=== PATIENT | female | born 1985 | race Caucasian/White ===

== ENCOUNTER 2017-10-17 15:10 | Emergency (ER) | payer MEDICAID ==
[2017-10-17 15:26] VITALS: RESP 18
[2017-10-17] MEDS ORDERED: METOCLOPRAMIDE 5 MG/ML 2 ML VIAL IVP STA (15:39)
[2017-10-17] MEDS ORDERED: KETOROLAC 30 MG/ML 1 ML VIAL IVP STA (15:39)
[2017-10-17] MEDS ORDERED: LIDOCAINE 2% INJ 20 MG/ML (20 ML MDV) SQ STA (15:40)
--- NOTE | 2017-10-17 16:20 | ED ---
General Adult HPI - General Chief complaint: Headache Stated complaint: Headache Time Seen by Provider: 10/17/17 15:14 Source: patient Mode of arrival: ambulatory Limitations: no limitations - History of Present Illness Initial comments: Ania is a healthy 32 yo female who presents to the ED for evaluation of persistent headache for 6 weeks duration. Patient states that she is currently in [employer] and initially attributed her headache to stress of reading and studying while having twin 4yo boys at home. Patient states her headache began 6 weeks ago, she has attempted treatment with [id number] medications including Tylenol, Motrin, Excedrin. In addition she has tried heating pads and relaxation methods. She states that on the of this month she was experiencing frontal sinus, maxillary sinus and dental pain in addition to nasal congestion with a headache which prompted her to seek care at a walk-in clinic. Patient was diagnosed with a sinus infection and prescribed azithromycin. She reports that she had 1-2 days of relief of the headache after taking the azithromycin, however her headache has recurred. Patient subsequently followed up with walk-in clinic again and was given a cephalosporin. 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 He recommended to follow-up in outpatient setting. Patient reports that last night she took half a dose of Rizatriptan with improvement in her headache, however this morning she woke and she felt as though she had a rebound headache which was worse than her initial headache. She states that this morning she took some Excedrin with some improvement in her headache however headache persisted throughout the day which prompted her to seek care at the walk-in clinic. She was given Benadryl and Tylenol with minimal relief and was advised to come to the ER for further evaluation. Patient denies any fevers, chills, nausea or vomiting. She denies any positional changes in her headache. She reports that the headache seems to worsen when she is reading or trying to focus. Pain waxes and wanes throughout the day, is not worse in the morning. Pain occurs whether she has a home, work or school. Patient does report that she has a very high prescription on her eye glasses and has not followed up in approximately one year, she states that she is due for a ophthalmologic evaluation and possible new prescription for her glasses. Does feel that her eyes are strained by her studying. - Related Data Home Medications Medication Instructions Recorded Confirmed Carvedilol [Coreg] 1.5 tab PO DAILY 05/02/14 08/24/14 Losartan [Cozaar] 12.5 mg PO DAILY 05/02/14 08/24/14 Spironolactone [Aldactone] 25 mg PO DAILY 05/02/14 08/24/14 Previous Rx's Medication Instructions Recorded Ciprofloxacin HCl [Cipro] 500 mg PO Q12HR #14 tablet 08/24/14 HYDROcodone/APAP 5-325MG [[place] 1 each PO Q4HR PRN #20 tab 08/24/14 5-325] Naproxen [Naprosyn] 500 mg PO Q12HR #24 tab 08/24/14 Ondansetron Odt [Zofran Odt] 4 mg PO Q6HR PRN #12 tab 08/24/14 Allergies Allergy/AdvReac Type Severity Reaction Status Date / Time Penicillins Allergy Unknown Verified 10/17/17 15:26 Review of Systems ROS Statement: Those systems with pertinent positive or pertinent negative responses have been documented in the HPI. ROS Other: All systems not noted in ROS Statement are negative. Constitutional: Denies: fever, chills Eyes: Reports: eye pain, vision change. Denies: eye discharge ENT: Denies: ear pain, throat pain Respiratory: Denies: cough, dyspnea Cardiovascular: Denies: chest pain, palpitations Endocrine: Denies: fatigue Gastrointestinal: Denies: abdominal pain, nausea, vomiting Genitourinary: Denies: abnormal menses Musculoskeletal: Reports: other (Tightness in her shoulders and neck). Denies: back pain Skin: Denies: rash, lesions Neurological: Reports: headache. Denies: weakness, numbness, paresthesias, confusion, abnormal gait, vertigo Psychiatric: Reports: other (high stress with work/school). 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 History of Any Multi-Drug Resistant Organisms: None Reported Past Surgical History: Section, Tonsillectomy, Tubal Ligation Past Psychological History: No Psychological Hx Reported Smoking Status: Never smoker Past Alcohol Use History: None Reported Past Drug Use History: None Reported General Exam Limitations: no limitations General appearance: alert, in no apparent distress Head exam: Present: atraumatic, normocephalic Eye exam: Present: normal appearance, PERRL, EOMI, other (normal fundoscopic exam) ENT exam: Present: normal exam, normal oropharynx Neck exam: Present: normal inspection, other (paraspinal muscle hypertonicity ) . Absent: tenderness, meningismus Respiratory exam: Present: normal lung sounds bilaterally. Absent: respiratory distress Cardiovascular Exam: Present: regular rate, normal rhythm GI/Abdominal exam: Present: soft. Absent: distended Rectal exam: Present: deferred Extremities exam: Present: normal inspection Back exam: Present: normal inspection Neurological exam: Present: alert, oriented X3, CN II-XII intact Psychiatric exam: Present: normal affect Skin exam: Present: warm, dry Course Vital Signs 10/17/17 15:21 Temperature 97.7 F Pulse Rate 88 Respiratory 18 Rate Blood Pressure 148/77 O2 Sat by Pulse 100 Oximetry - Reevaluation(s) Reevaluation #1: Patient resting comfortably, sphenopalentine block placed 10/17/17 16:15 Medical Decision Making - Medical Decision Making Patient was seen and evaluated, history obtained by patient and her mother Patient with intermittent recurrent headache over the past 6 weeks has been treated for a possible sinus infection, but has had resolution of any nasal congestion or pain in her sinuses. Appears afebrile nonseptic nontoxic, has no meningeal signs Headache occurs daily, is worse with breathing or talking to focus her eyes, not positional, not worse with coughing or bending over, not related to home environment At this time I do feel the patient is suffering from a migraine headache, likely exacerbated by eyestrain - patient received Tylenol Benadryl prior to arrival I will treat the patient with Reglan and Toradol as well as a sphenopalatine block Patient received IV medications Sphenopalentine block was placed Patient was reassessed approximately 30 minutes later, she reports that her pain has decreased to approximately a 2 out of 10. She reports that she feels she is thinking more clearly now on her headache is significantly improved. She states that she feels comfortable being discharged home at this time the plan to rest for the remainder of the evening. Patient states that she will call for neurology follow-up tomorrow morning as well as schedule an appointment to have her vision reassessed and her prescription reevaluated. Patient was advised to return to the emergency department should she develop any worsening headache or new or concerning symptoms. All questions pertaining to care were answered to the best my ability patient was discharged home in good condition. Disposition Clinical Impression: Migraine Disposition: HOME SELF-CARE Condition: Good Instructions: Acute Headache (ED) Is patient prescribed a controlled substance at d/c from ED?: No Referrals: Jim Pereira MD [Primary Care Provider] - 1-2 days Time of Disposition: 17:14
[2017-10-17 17:39] VITALS: BP 114/59; PULSE 62; TEMP 97.2
== END 2017-10-17 17:37 | disposition home or self-care (01) ==
LOC: EC 15:10
DX: G43.909 Migraine, unspecified, not intractable, without status migrainosus (principal); Z79.02 Long term (current) use of antithrombotics/antiplatelets; Z79.899 Other long term (current) drug therapy; Z88.0 Allergy status to penicillin
CPT/HCPCS: 99283; 96374; 96375; J2765; J1885

== ENCOUNTER → 2021-05-16 | Outpatient (CLI) | payer BC ==
--- NOTE | 2021-05-19 11:28 | MM ---
Reason for exam: screening (asymptomatic). Baseline mammogram. History: Family history of breast cancer in paternal aunt at age 60. Physical Findings: Nurse did not find any significant physical abnormalities on exam. MG 3D Screening Mammo W/Cad Bilateral CC and MLO view(s) were taken. There are scattered fibroglandular densities. Right upper outer quadrant focal asymmetry likely superimposition shadow. Further evaluation recommended. ASSESSMENT: Incomplete: need additional imaging evaluation, BI-RAD 0 RECOMMENDATION: Special view mammogram of the right breast. (3D) If lesion persists on supplemental views, image directed ultrasound is recommended. [facility] will attempt to contact patient to return for supplemental views and ultrasound if indicated.
== END | disposition home or self-care (01) ==
LOC: RADMAMWWP 08:17
PROVIDERS: ATTEND Obstetrics & Gynecology
DX: Z12.31 Encounter for screening mammogram for malignant neoplasm of breast (principal); Z80.3 Family history of malignant neoplasm of breast; R92.8 Other abnormal and inconclusive findings on diagnostic imaging of breast
CPT/HCPCS: 77063; 77067

== ENCOUNTER → 2021-05-21 | Outpatient (CLI) | payer BC ==
--- NOTE | 2021-05-21 09:58 | MM ---
Reason for exam: additional evaluation requested from abnormal screening. Last mammogram was performed less than 1 month ago. History: Family history of breast cancer in paternal aunt at age 60. Took hormonal contraceptives for 7 years beginning at age 15. Physical Findings: Nurse Summary: 0.5cm nodule in the right breast at 10 o'clock (nurse ms). MG 3D Work Up W/Cad RT Spot compression CC, spot compression MLO, and LM view(s) were taken of the right breast. Prior study comparison: May 16, 2021, bilateral MG 3d screening mammo w/cad. There are scattered fibroglandular densities. The right upper outer quadrant local asymmetry becomes less defined but there is a nurse palpated marker here. These results were verbally communicated with the patient and result sheet given to the patient on 05/21/21. ASSESSMENT: Incomplete: need additional imaging evaluation, BI-RAD 0 RECOMMENDATION: Ultrasound of the right breast.
--- NOTE | 2021-05-21 10:00 | USB ---
Reason for exam: additional evaluation requested from abnormal screening. History: Family history of breast cancer in paternal aunt at age 60. Took hormonal contraceptives for 7 years beginning at age 15. US Breast Limited RT Right limited breast ultrasound including focal area of concern, retroareolar and axilla demonstrates a 1.7 x 2.1 x 0.5cm benign appearing lymph node at the axilla. No cystic solid lesion seen. 6 month follow up mammogram. If stable at that time, screening can resume at age 39. Scanned 9-11 o'clock. These results were verbally communicated with the patient and result sheet given to the patient on 05/21/21. ASSESSMENT: Probably benign, BI-RAD 3 RECOMMENDATION: Follow-up diagnostic mammogram of the right breast in 6 months.
== END | disposition home or self-care (01) ==
LOC: RADMAMWWP 08:11
PROVIDERS: ATTEND Obstetrics & Gynecology
DX: R92.8 Other abnormal and inconclusive findings on diagnostic imaging of breast (principal)
CPT/HCPCS: 77061; 77065

== ENCOUNTER → 2022-05-20 | Outpatient (CLI) | payer BC ==
--- NOTE | 2022-05-20 08:31 | MM ---
Reason for Exam: Follow-up at short interval from prior study. Last screening mammogram was performed 12 month(s) ago. Patient History: Menarche at age 13. First Full-Term at age 22. Hormonal Contraceptives for 7 years from age 15 until age 22. Paternal aunt had breast cancer, age 60. Risk Values: Rosalia 5 year model risk: 0.4%. NCI Lifetime model risk: 8.3%. Prior Study Comparison: 05/16/2021 Bilateral Screening Mammogram, [facility]. 05/21/2021 Right Diagnostic Mammogram, [facility]. Tissue Density: Right: There are scattered fibroglandular densities. Findings: Analyzed By CAD. No distinct mass or distortion identified at this time. Overall Assessment: Negative, BI-RAD 1 Management: Screening Mammogram of both breasts in 6 months. A clinical breast exam by your physician is recommended on an annual basis and results should be correlated with mammographic findings. This exam should not preclude additional follow-up of suspicious palpable abnormalities. Results were given to the patient verbally at the time of exam. Electronically signed and approved by: Robi Chapamn M.D. Radiologis
== END | disposition home or self-care (01) ==
LOC: RADMAMWWP 07:32
PROVIDERS: ATTEND Obstetrics & Gynecology
DX: R92.8 Other abnormal and inconclusive findings on diagnostic imaging of breast (principal); Z80.3 Family history of malignant neoplasm of breast
CPT/HCPCS: 77061; 77065

== ENCOUNTER → 2024-09-22 | Outpatient (CLI) | payer BC ==
--- NOTE | 2024-09-22 13:47 | MM ---
Reason for Exam: Screening (asymptomatic). Last mammogram was performed 3 year(s) and 4 month(s) ago. Patient History: Menarche at age 13. First Full-Term at age 22. Premenopausal. Hormonal Contraceptives for 7 years from age 15 until age 22. Paternal aunt had breast cancer, age 60. Risk Values: Rosalia 5 year model risk: 0.5%. NCI Lifetime model risk: 8.3%. Prior Study Comparison: 05/16/2021 Bilateral Screening Mammogram, [facility]. 05/21/2021 Right Diagnostic Mammogram, [facility]. 05/20/2022 Right MG 3D diag mammo w/cad RT, [facility]. Tissue Density: There are scattered areas of fibroglandular density. Findings: Analyzed By CAD. There is no suspicious group of microcalcifications or new suspicious mass in either breast. Benign appearing left axillary lymph node. Overall Assessment: Benign, BI-RAD 2 Management: Screening Mammogram of both breasts in 1 year. . Patient should continue monthly self-breast exams. A clinical breast exam by your physician is recommended on an annual basis. This exam should not preclude additional follow-up of suspicious palpable abnormalities. Note on Rosalia scores and lifetime risk: 1. A Rosalia score greater than 3% is considered moderate risk. If this is the case, consider specialist referral to assess eligibility for a risk reducing agent. 2. If overall lifetime risk for the development of breast cancer is 20% or higher, the patient may qualify for future screening with alternating mammogram and breast MRI. [facility], , 09/22/2024 1:44 PM. Electronically signed and approved by: Ronny Araiza M.D. Radiologis
== END | disposition home or self-care (01) ==
LOC: RADMAMWWP 13:25
PROVIDERS: ATTEND Family Medicine
DX: Z12.31 Encounter for screening mammogram for malignant neoplasm of breast (principal); R92.323 Mammographic fibroglandular density, bilateral breasts; Z80.3 Family history of malignant neoplasm of breast; Z92.0 Personal history of contraception
CPT/HCPCS: 77063; 77067